=== PATIENT | male | born 1975 | race Caucasian/White ===

== ENCOUNTER 2021-07-14 14:34 | Inpatient (IN) | payer OTHER ==
[~2021-07-14] VITALS: Ht 188 cm; Wt 184.6 kg
[2021-07-14 14:47] VITALS: BP 167/88
[2021-07-14 15:14] LABS: BE 2.6 mmol/L (-2 to +3); PCO2 35.6 mmHg (35.0-45.0); PO2 69.4 mmHg (75.0-100.0); pH 7.478 (7.340-7.450)
[2021-07-14 15:31] LABS: INFLUENZA A ANTIGEN Negative (Negative); INFLUENZA B ANTIGEN Negative (Negative)
[2021-07-14 16:30] LABS: ABSOLUTE LYMPHOCYTES 0.6 thou/uL (0.8-5.3); ABSOLUTE MONOCYTES 0.5 thou/uL (0.0-1.2); ABSOLUTE NEUTROPHILS 5.5 thou/uL (1.6-8.1); BASOPHILS 0.3 %; EOSINOPHILS 0.2 %; HEMATOCRIT 41.2 % (42.0-52.0); LYMPHOCYTES 9.2 %; MCH 28.1 pg (26.0-34.0); MCV 82.5 fL (80.0-100.0); MPV 7.4 fl. (7.2-11.1); NUCLEATED RBCS 0 /100WBC; PLATELET COUNT* 214 thou/uL (150-400); POLYS 83.3 %; RBC 4.99 mil/uL (4.50-6.00); RDW-CV 13.9 % (10.5-14.5); WBC 6.6 thou/uL (4.0-11.0)
[2021-07-14 16:38] LABS: CREATININE 1.6 mg/dL (0.6-1.3); POTASSIUM 3.5 mmol/L (3.5-5.1)
[2021-07-14 16:49] LABS: ALBUMIN 2.8 g/dL (3.4-5.0); TOTAL BILIRUBIN 0.8 mg/dL (<0.1-1.0); TOTAL PROTEIN 7.8 g/dL (6.4-8.2)
--- NOTE | 2021-07-14 17:13 | EKG ---
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
[2021-07-14 20:01] VITALS: BP 114/81
[2021-07-15] VITALS (7 sets, daily range): BP systolic 120–142; BP diastolic 72–91
[2021-07-16 00:50] VITALS: BP 120/67
[2021-07-16 04:43] VITALS: BP 122/73
[2021-07-16 08:45] VITALS: BP 133/81
[2021-07-16 10:49] LABS: HEMATOCRIT 39.7 % (42.0-52.0); HEMOGLOBIN 13.7 gm/dL (14.0-18.0); MCH 28.1 pg (26.0-34.0); MCHC 34.4 g/dL (28.0-37.0); MCV 81.5 fL (80.0-100.0); MPV 7.7 fl. (7.2-11.1); RBC 4.87 mil/uL (4.50-6.00); RDW-CV 14.2 % (10.5-14.5); WBC 12.1 thou/uL (4.0-11.0)
[2021-07-16 10:57] LABS: ALBUMIN 2.7 g/dL (3.4-5.0); CALCIUM 8.4 mg/dL (8.5-10.1); CREATININE 1.3 mg/dL (0.6-1.3); MAGNESIUM 2.9 mg/dL (1.8-2.4); POTASSIUM 3.5 mmol/L (3.5-5.1); TOTAL BILIRUBIN 0.6 mg/dL (<0.1-1.0); TOTAL PROTEIN 7.7 g/dL (6.4-8.2)
[2021-07-16 13:12] VITALS: BP 137/80
[2021-07-16 16:00] VITALS: BP 127/77
[2021-07-16 20:00] VITALS: BP 133/87
[2021-07-17] VITALS: BP 116/75
[2021-07-17 04:01] VITALS: BP 121/76
[2021-07-17 08:00] VITALS: BP 132/85
[2021-07-17 12:22] LABS: ABSOLUTE MONOCYTES 0.5 thou/uL (0.0-1.2); ABSOLUTE NEUTROPHILS 7.9 thou/uL (1.6-8.1); BASOPHILS 0.4 %; EOSINOPHILS 0.1 %; HEMATOCRIT 39.5 % (42.0-52.0); HEMOGLOBIN 13.2 gm/dL (14.0-18.0); LYMPHOCYTES 10.6 %; MCH 28.4 pg (26.0-34.0); MCHC 33.4 g/dL (28.0-37.0); MONOCYTES 5.2 %; MPV 7.7 fl. (7.2-11.1); NUCLEATED RBCS 0 /100WBC; PLATELET COUNT* 203 thou/uL (150-400); POLYS 83.7 %; RBC 4.65 mil/uL (4.50-6.00); RDW-CV 14.2 % (10.5-14.5); WBC 9.4 thou/uL (4.0-11.0)
[2021-07-17 12:30] VITALS: BP 141/79
[2021-07-17 12:37] LABS: ALBUMIN 2.6 g/dL (3.4-5.0); CALCIUM 8.2 mg/dL (8.5-10.1); CREATININE 1.2 mg/dL (0.6-1.3); MAGNESIUM 2.8 mg/dL (1.8-2.4); TOTAL BILIRUBIN 0.7 mg/dL (<0.1-1.0); TOTAL PROTEIN 7.3 g/dL (6.4-8.2)
[2021-07-17 20:00] VITALS: BP 128/89
[2021-07-18] VITALS (7 sets, daily range): BP systolic 116–147; BP diastolic 73–87
[2021-07-18 12:23] LABS: HEMATOCRIT 38.3 % (42.0-52.0); MCH 28.3 pg (26.0-34.0); MCHC 33.8 g/dL (28.0-37.0); MCV 83.6 fL (80.0-100.0); MPV 7.9 fl. (7.2-11.1); NUCLEATED RBCS 0 /100WBC; PLATELET COUNT* 169 thou/uL (150-400); RBC 4.58 mil/uL (4.50-6.00); RDW-CV 14.3 % (10.5-14.5)
[2021-07-18 12:56] LABS: ABSOLUTE LYMPHOCYTES 1.3 thou/uL (0.8-5.3); ABSOLUTE MONOCYTES 0.7 thou/uL (0.0-1.2)
[2021-07-18 12:57] LABS: PLATELET ESTIMATE ADEQUATE
[2021-07-18 13:30] LABS: ALBUMIN 2.5 g/dL (3.4-5.0); CALCIUM 7.7 mg/dL (8.5-10.1); CREATININE 1.1 mg/dL (0.6-1.3); MAGNESIUM 2.6 mg/dL (1.8-2.4); POTASSIUM 3.6 mmol/L (3.5-5.1); TOTAL BILIRUBIN 0.6 mg/dL (<0.1-1.0); TOTAL PROTEIN 6.8 g/dL (6.4-8.2)
[2021-07-19 02:02] VITALS: BP 125/69
[2021-07-19 06:11] VITALS: BP 125/84
[2021-07-19 08:00] VITALS: BP 135/60
[2021-07-19 12:07] VITALS: BP 138/76
[2021-07-19 19:45] VITALS: BP 121/67
[2021-07-20 02:28] VITALS: BP 120/78
[2021-07-20 06:31] VITALS: BP 118/75
[2021-07-20 08:09] VITALS: BP 130/79
[2021-07-20 11:48] LABS: pH 7.476 (7.340-7.450)
[2021-07-20 11:49] LABS: BE 2.5 mmol/L (-2 to +3); PCO2 35.8 mmHg (35.0-45.0); PO2 65.1 mmHg (75.0-100.0)
[2021-07-20 12:25] VITALS: BP 139/83
[2021-07-20 12:53] LABS: ABSOLUTE LYMPHOCYTES 0.7 thou/uL (0.8-5.3); ABSOLUTE MONOCYTES 0.6 thou/uL (0.0-1.2); ABSOLUTE NEUTROPHILS 12.2 thou/uL (1.6-8.1); BASOPHILS 0.2 %; EOSINOPHILS 0.1 %; HEMATOCRIT 38.3 % (42.0-52.0); HEMOGLOBIN 12.4 gm/dL (14.0-18.0); MCH 27.9 pg (26.0-34.0); MCHC 32.5 g/dL (28.0-37.0); MCV 85.9 fL (80.0-100.0); MONOCYTES 4.4 %; MPV 7.5 fl. (7.2-11.1); NUCLEATED RBCS 0 /100WBC; PLATELET COUNT* 197 thou/uL (150-400); POLYS 90.3 %; RBC 4.46 mil/uL (4.50-6.00); RDW-CV 14.2 % (10.5-14.5); WBC 13.5 thou/uL (4.0-11.0)
[2021-07-20 13:06] LABS: CREATININE 0.9 mg/dL (0.6-1.3); POTASSIUM 5.8 mmol/L (3.5-5.1); TOTAL BILIRUBIN 0.6 mg/dL (<0.1-1.0); TOTAL PROTEIN 6.8 g/dL (6.4-8.2)
[2021-07-20 14:29] LABS: APTT 30.4 Seconds (25.0-31.3); INR 1.2; PROTIME 12.4 Seconds (9.20-11.50)
[2021-07-20 15:17] LABS: ABSOLUTE LYMPHOCYTES 0.7 thou/uL (0.8-5.3); ABSOLUTE MONOCYTES 0.5 thou/uL (0.0-1.2); ABSOLUTE NEUTROPHILS 13.5 thou/uL (1.6-8.1); BASOPHILS 0.2 %; EOSINOPHILS 0.1 %; HEMOGLOBIN 13.2 gm/dL (14.0-18.0); LYMPHOCYTES 4.5 %; MCH 28.1 pg (26.0-34.0); MCHC 33.1 g/dL (28.0-37.0); MONOCYTES 3.7 %; MPV 7.4 fl. (7.2-11.1); NUCLEATED RBCS 0 /100WBC; PLATELET COUNT* 210 thou/uL (150-400); POLYS 91.5 %; RBC 4.71 mil/uL (4.50-6.00); RDW-CV 13.9 % (10.5-14.5); WBC 14.7 thou/uL (4.0-11.0)
[2021-07-20 15:34] LABS: ALBUMIN 2.3 g/dL (3.4-5.0); CALCIUM 8.2 mg/dL (8.5-10.1); MAGNESIUM 2.6 mg/dL (1.8-2.4); TOTAL BILIRUBIN 0.6 mg/dL (<0.1-1.0); TOTAL PROTEIN 7.4 g/dL (6.4-8.2)
[2021-07-20 15:35] LABS: POTASSIUM 4.3 mmol/L (3.5-5.1)
[2021-07-20 16:00] VITALS: BP 129/76
[2021-07-20 20:00] VITALS: BP 117/73
[2021-07-21 01:47] VITALS: BP 119/65
[2021-07-21 05:15] LABS: ABSOLUTE LYMPHOCYTES 0.8 thou/uL (0.8-5.3); ABSOLUTE MONOCYTES 0.6 thou/uL (0.0-1.2); ABSOLUTE NEUTROPHILS 13.7 thou/uL (1.6-8.1); BASOPHILS 0.1 %; EOSINOPHILS 0.1 %; HEMATOCRIT 38.4 % (42.0-52.0); LYMPHOCYTES 5.3 %; MCH 28.1 pg (26.0-34.0); MCHC 33.9 g/dL (28.0-37.0); MCV 82.9 fL (80.0-100.0); MONOCYTES 3.9 %; MPV 7.8 fl. (7.2-11.1); NUCLEATED RBCS 0 /100WBC; PLATELET COUNT* 209 thou/uL (150-400); POLYS 90.6 %; RBC 4.63 mil/uL (4.50-6.00); RDW-CV 14.1 % (10.5-14.5); WBC 15.2 thou/uL (4.0-11.0)
[2021-07-21 05:35] VITALS: BP 118/68
[2021-07-21 05:51] LABS: ALBUMIN 2.2 g/dL (3.4-5.0); CALCIUM 8.2 mg/dL (8.5-10.1); CREATININE 1.1 mg/dL (0.6-1.3); MAGNESIUM 2.5 mg/dL (1.8-2.4); PHOSPHORUS* 4.7 mg/dL (2.5-4.9); POTASSIUM 4.2 mmol/L (3.5-5.1); TOTAL BILIRUBIN 0.5 mg/dL (<0.1-1.0)
[2021-07-21 12:20] LABS: BE 3.2 mmol/L (-2 to +3); PCO2 38.8 mmHg (35.0-45.0); pH 7.461 (7.340-7.450)
[2021-07-21 12:23] LABS: PO2 56.4 mmHg (75.0-100.0)
--- NOTE | 2021-07-21 12:57 | 2DMMODE ---
[place] [address] 2 D/M-MODE ECHOCARDIOGRAM Name: MAIDA ERNANDEZ Room: [address] IN [facility]#: [id number] Admission: 07/14/21 Attend Phys: Aubrey Gonzalez Discharge: Date of : 77 Date of Service: 07/21/21 1257 Report #: [id number] THIS REPORT FOR: cc: FAM - No family physician/PCP BETY - No family physician/PCP Perry Brannon MD [facility] ~ APPROVED REPORT Study performed: 07/21/2021 10:19:46 EXAM: Comprehensive 2D, Doppler, and color-flow Echocardiogram Patient Location: In-Patient Room #: [facility] Status: routine BSA: 2.99 HR: 70 bpm BP: 118/68 mmHg Rhythm: NSR Other Information Study Quality: Technically Difficult Technically limited study due to patient could not tolerate apical views. Indications Dyspnea possible PE 2D Dimensions IVSd: 11.78 (7-11mm) LVOT Diam: 23.82 (18-24mm) LVDd: 55.46 mm PWd: 10.37 (7-11mm) Ascending Ao: 32.58 (22-36mm) LVDs: 35.29 (25-40mm) Aortic Root: 36.96 mm Mitral Valve E/A Ratio: 1.40 MV Decel. Time: 263.14 ms MV E Max Peter.: 0.75 m/s MV PHT: 76.31 ms MVA (PHT): 2.88 cm2 Pulmonary Valve PV Peak Peter.: 1.58 m/s PV Peak Gr.: 10.02 [place] [address] 2 D/M-MODE ECHOCARDIOGRAM Name: MAIDA ERNANDEZ Room: [address] IN [facility]#: [id number] Admission: 07/14/21 Attend Phys: Aubrey Gonzalez Discharge: Date of : 77 Date of Service: 07/21/21 1257 Report #: [id number] Left Ventricle The left ventricle is normal size. There is normal LV segmental wall motion. There is normal left ventricular wall thickness. Left ventricular systolic function is normal. The left ventricular ejection fraction is within the normal range. LVEF is 55%. The left ventricular diastolic function is normal. Right Ventricle The right ventricle is normal size. The right ventricular systolic function is normal. Atria The left atrium size is normal. The right atrium size is normal. Aortic Valve The aortic valve is normal in structure. No aortic regurgitation is present. There is no aortic valvular stenosis. Mitral Valve The mitral valve is normal in structure. There is no mitral valve regurgitation noted. No evidence of mitral valve stenosis. Tricuspid Valve The tricuspid valve is normal in structure. Unable to assess PA pressure. There is no tricuspid valve regurgitation noted. Pulmonic Valve The pulmonary valve is normal in structure. Trace pulmonic regurgitation. Great Vessels The aortic root is normal in size. IVC is normal in size and collapses >50% with inspiration. Pericardium There is no pericardial effusion. <Conclusion> The left ventricle is normal size. There is normal left ventricular wall thickness. Left ventricular systolic function is normal. The left ventricular ejection fraction is within the normal range. LVEF is 55%. [place] [address] 2 D/M-MODE ECHOCARDIOGRAM Name: AWAISMADIA Room: [address] IN [facility]#: [id number] Admission: 07/14/21 Attend Phys: Aubrey Gonzalez Discharge: Date of : 77 Date of Service: 07/21/21 1257 Report #: [id number] The left ventricular diastolic function is normal. The right ventricle is normal size. The left atrium size is normal. The aortic valve is normal in structure. The mitral valve is normal in structure. The tricuspid valve is normal in structure. IVC is normal in size and collapses >50% with inspiration. There is no pericardial effusion. There is normal LV segmental wall motion. <ELECTRONICALLY SIGNED> By: Perry Brannon MD, [facility] 07/21/21 1257 1257 1257 Perry Brannon MD, FACC /INF
[2021-07-21 13:03] VITALS: BP 122/82
--- NOTE | 2021-07-21 13:30 | CON ---
[address] [address] CONSULTATION Name: MAIDA ERNANDEZ Room: [address] IN .R.#: [id number] Admission: 07/14/21 Attend Phys: Karen Hernandez Discharge: Date of : 77 Report #: [id number] THIS REPORT FOR: cc: FAM - No family physician/PCP FAM - No family physician/PCP Franc Cabezas MD ~ DATE OF CONSULTATION: 07/20/[address] Rico. INDICATION FOR CONSULTATION: Acute hypoxemic respiratory failure secondary to COVID-19. HISTORY OF PRESENT ILLNESS: A 46-year-old gentleman, he has morbid obesity, body mass index 55, likely has underlying obstructive sleep apnea, not previously diagnosed, also does have an extensive history of smoking in the past and may have previously undiagnosed COPD. He is now admitted with acute hypoxemic respiratory failure secondary to COVID-19, appears anxious, is on a BiPAP with 100% FiO2, remains fully awake; however, is unable to take BiPAP off and desaturates and placed on a heated high-flow nasal cannula, does have swelling of lower extremities. The patient is on a BiPAP and therefore was able to provide only limited history and review of systems. Review of systems and history are negative except as mentioned above. He has had recent cellulitis of lower extremities. PAST MEDICAL HISTORY: Morbid obesity, body mass index 55. SOCIAL HISTORY: Previous history of smoking, unable to quantify. ALLERGIES: No known drug allergies. FAMILY HISTORY: Unremarkable. VACCINATION HISTORY: Not known to me as to whether he has had the COVID-19 vaccine. PHYSICAL EXAMINATION: GENERAL: He is alert, awake and oriented, but appears to be anxious, has significant work of breathing. VITAL SIGNS: He is on BiPAP 100% FiO2, set at 16/12. He is saturating 94% with this. The rest of his vital signs are in [facility] reviewed. HEENT: Head is normocephalic and atraumatic. NECK: Does not show raised JVP. CHEST: Breath sounds are bilaterally equal and decreased, [place] [address] CONSULTATION Name: MAIDA ERNANDEZ Room: [address] IN [facility]#: [id number] Admission: 07/14/21 Attend Phys: Karen Hernandez Discharge: Date of : 77 Report #: [id number] to tachypnea. HEART: Regular. No murmur. ABDOMEN: Soft and nontender. EXTREMITIES: Lower extremities, 1+ edema, no calf tenderness. LABORATORY DATA: The patient's chest x-rays as well as labs are in [facility] and these are reviewed. The last set of chemistries may not be accurate. ASSESSMENT AND PLAN: 1. Acute hypoxemic respiratory failure secondary to COVID-19. For now, keep him on BiPAP or making other changes to his management. Therefore, I did not change the BiPAP settings at this time, but I do intend to in the future consider switching it over to AVAPS. He appears to be anxious. I would favor giving him Precedex. Unfortunately, I do not have a room available in the ICU, which is negative pressure. Therefore, we would give him Ativan and follow response to this. In case he fails to respond, then I would still be inclined to try a Precedex drip before considering intubation. 2. COVID-19. Agree with dexamethasone at current dose. He received 5 doses of remdesivir, I ordered 5 more. He has received Actemra, which I also agree with. 3. Deep venous thrombosis/possible acute pulmonary emboli. Agree with IV heparin drip as ordered by Dr. Rico. Marked elevation in D-dimer is noted. 4. Pulmonary infiltrates. For now, we will recommend broadly covering him. Linezolid and azithromycin are added and cefepime dose increased. Procalcitonin level ordered. We will check nasal MRSA swab and if possible, sputum culture. 5. Fluid overload. He appears to be total body fluid overloaded. I ordered 40 of Lasix. He has had recent labs performed, which show marked elevation in glucose as well as high potassium level and low sodium level. The patient had a Clinimix running at that time in the other port. It could be secondary to admixture from it. We will repeat labs now and see where we stand. I only ordered 40 of Lasix for now. We will be inclined to give him more Lasix with or without albumin later. 6. Hyperglycemia. Defer insulin management to the Primary Service. As above, the last blood glucose of 399 may not be accurate. Potassium level may also not be accurate and therefore rechecking. 7. Clostridium difficile prophylaxis. If able to, then we will give him probiotic. 8. Gastrointestinal prophylaxis. Protonix is chosen over Pepcid as he is also on linezolid and on cefepime and on heparin, all of which will drop platelets and so would Pepcid. The patient is critically ill at this time. [address] [address] CONSULTATION Name: MAIDA ERNANDEZ Room: [address]#: [id number] Admission: 07/14/21 Attend Phys: Karen Hernandez Discharge: Date of : 77 Report #: [id number] Total time spent providing critical care to this patient today is 41 minutes. <ELECTRONICALLY SIGNED> By: Franc Cabezas MD 07/21/21 1330 1409 1549Admitriy Cabezas MD /nt
[2021-07-21 16:00] VITALS: BP 126/73
[2021-07-21 23:15] VITALS: BP 129/83
[2021-07-21 23:56] VITALS: BP 114/78
[2021-07-22 04:03] VITALS: BP 130/83
[2021-07-22 05:50] LABS: ABSOLUTE LYMPHOCYTES 0.6 thou/uL (0.8-5.3); ABSOLUTE MONOCYTES 0.6 thou/uL (0.0-1.2); ABSOLUTE NEUTROPHILS 11.7 thou/uL (1.6-8.1); BASOPHILS 0.1 %; EOSINOPHILS 0.2 %; HEMATOCRIT 40.6 % (42.0-52.0); HEMOGLOBIN 13.5 gm/dL (14.0-18.0); LYMPHOCYTES 4.8 %; MCH 28.2 pg (26.0-34.0); MCHC 33.3 g/dL (28.0-37.0); MCV 84.9 fL (80.0-100.0); MONOCYTES 4.9 %; MPV 7.5 fl. (7.2-11.1); NUCLEATED RBCS 0 /100WBC; PLATELET COUNT* 223 thou/uL (150-400); RBC 4.78 mil/uL (4.50-6.00); RDW-CV 13.9 % (10.5-14.5)
[2021-07-22 06:01] LABS: ALBUMIN 2.6 g/dL (3.4-5.0); CREATININE 1.1 mg/dL (0.6-1.3); MAGNESIUM 2.4 mg/dL (1.8-2.4); POTASSIUM 4.3 mmol/L (3.5-5.1); TOTAL BILIRUBIN 0.7 mg/dL (<0.1-1.0); TOTAL PROTEIN 7.1 g/dL (6.4-8.2)
[2021-07-22 08:30] VITALS: BP 133/83
[2021-07-22 12:00] VITALS: BP 120/66
[2021-07-22 16:00] VITALS: BP 122/78
[2021-07-22 20:00] VITALS: BP 131/63
[2021-07-23] VITALS (28 sets, daily range): BP systolic 72–196; BP diastolic 43–142
[2021-07-23 07:23] LABS: HEMATOCRIT 43.7 % (42.0-52.0); HEMOGLOBIN 14.4 gm/dL (14.0-18.0); MCH 27.8 pg (26.0-34.0); MCHC 32.9 g/dL (28.0-37.0); MCV 84.5 fL (80.0-100.0); MPV 7.8 fl. (7.2-11.1); NUCLEATED RBCS 0 /100WBC; PLATELET COUNT* 223 thou/uL (150-400); RBC 5.17 mil/uL (4.50-6.00); WBC 17.7 thou/uL (4.0-11.0)
[2021-07-23 07:32] LABS: ALBUMIN 2.9 g/dL (3.4-5.0); CALCIUM 8.2 mg/dL (8.5-10.1); CREATININE 1.1 mg/dL (0.6-1.3); MAGNESIUM 2.4 mg/dL (1.8-2.4); POTASSIUM 4.4 mmol/L (3.5-5.1); TOTAL BILIRUBIN 0.8 mg/dL (<0.1-1.0); TOTAL PROTEIN 7.5 g/dL (6.4-8.2)
[2021-07-23 08:19] LABS: ABSOLUTE LYMPHOCYTES 1.1 thou/uL (0.8-5.3); ABSOLUTE MONOCYTES 0.9 thou/uL (0.0-1.2); ABSOLUTE NEUTROPHILS 15.8 thou/uL (1.6-8.1); PLATELET ESTIMATE ADEQUATE
[2021-07-23 09:40] LABS: BE 0.3 mmol/L (-2 to +3); PO2 62.4 mmHg (75.0-100.0); pH 7.371 (7.340-7.450)
[2021-07-23 17:44] LABS: BE 0.6 mmol/L (-2 to +3); PO2 66.9 mmHg (75.0-100.0); pH 7.388 (7.340-7.450)
[2021-07-24] VITALS (22 sets, daily range): BP systolic 90–129; BP diastolic 48–67
[2021-07-24 06:09] LABS: ABSOLUTE BASOPHILS 0.1 thou/uL (0.0-0.2); ABSOLUTE EOSINOPHILS 0.1 thou/uL (0.0-0.7); ABSOLUTE LYMPHOCYTES 0.9 thou/uL (0.8-5.3); ABSOLUTE MONOCYTES 1.2 thou/uL (0.0-1.2); ABSOLUTE NEUTROPHILS 24.3 thou/uL (1.6-8.1); BASOPHILS 0.2 %; EOSINOPHILS 0.2 %; HEMATOCRIT 43.1 % (42.0-52.0); HEMOGLOBIN 14.2 gm/dL (14.0-18.0); LYMPHOCYTES 3.5 %; MCH 27.9 pg (26.0-34.0); MCHC 32.9 g/dL (28.0-37.0); MCV 84.8 fL (80.0-100.0); MONOCYTES 4.4 %; MPV 8.3 fl. (7.2-11.1); NUCLEATED RBCS 0 /100WBC; PLATELET COUNT* 209 thou/uL (150-400); POLYS 91.7 %; RBC 5.08 mil/uL (4.50-6.00); WBC 26.5 thou/uL (4.0-11.0)
[2021-07-24 06:11] LABS: ALBUMIN 3.1 g/dL (3.4-5.0); CALCIUM 8.2 mg/dL (8.5-10.1); CREATININE 1.2 mg/dL (0.6-1.3); MAGNESIUM 2.7 mg/dL (1.8-2.4); TOTAL BILIRUBIN 0.9 mg/dL (<0.1-1.0); TOTAL PROTEIN 6.9 g/dL (6.4-8.2)
[2021-07-24 06:24] LABS: PHOSPHORUS* 4.3 mg/dL (2.5-4.9)
[2021-07-24 06:30] LABS: POTASSIUM 5.6 mmol/L (3.5-5.1)
[2021-07-24 10:35] LABS: BE -3.9 mmol/L (-2 to +3); PO2 80.3 mmHg (75.0-100.0)
[2021-07-24 10:41] LABS: pH 7.268 (7.340-7.450)
[2021-07-24 10:42] LABS: PCO2 52.9 mmHg (35.0-45.0)
[2021-07-24 18:15] LABS: BE -1.3 mmol/L (-2 to +3); PO2 81.8 mmHg (75.0-100.0)
[2021-07-24 18:23] LABS: PCO2 66.4 mmHg (35.0-45.0); pH 7.242 (7.340-7.450)
[2021-07-25] VITALS (19 sets, daily range): BP systolic -6–134; BP diastolic -9–68
[2021-07-25 06:52] LABS: ABSOLUTE LYMPHOCYTES 0.9 thou/uL (0.8-5.3); ABSOLUTE MONOCYTES 1.6 thou/uL (0.0-1.2); ABSOLUTE NEUTROPHILS 28.7 thou/uL (1.6-8.1); BASOPHILS 0.1 %; EOSINOPHILS 0.1 %; HEMATOCRIT 43.4 % (42.0-52.0); HEMOGLOBIN 14.1 gm/dL (14.0-18.0); LYMPHOCYTES 2.9 %; MCH 27.7 pg (26.0-34.0); MCHC 32.4 g/dL (28.0-37.0); MCV 85.4 fL (80.0-100.0); MONOCYTES 5.2 %; MPV 7.8 fl. (7.2-11.1); NUCLEATED RBCS 0 /100WBC; PLATELET COUNT* 200 thou/uL (150-400); POLYS 91.7 %; RBC 5.08 mil/uL (4.50-6.00); WBC 31.3 thou/uL (4.0-11.0)
[2021-07-25 07:12] LABS: INR 1.1; PROTIME 11.3 Seconds (9.20-11.50)
[2021-07-25 07:14] LABS: APTT 101.9 Seconds (25.0-31.3)
[2021-07-25 07:17] LABS: ALBUMIN 3.1 g/dL (3.4-5.0); CALCIUM 7.9 mg/dL (8.5-10.1); CREATININE 1.5 mg/dL (0.6-1.3); MAGNESIUM 2.7 mg/dL (1.8-2.4); TOTAL BILIRUBIN 0.9 mg/dL (<0.1-1.0); TOTAL PROTEIN 6.7 g/dL (6.4-8.2)
[2021-07-25 07:39] LABS: CREATININE 1.5 mg/dL (0.6-1.3); PHOSPHORUS* 5.8 mg/dL (2.5-4.9); POTASSIUM 5.9 mmol/L (3.5-5.1)
[2021-07-25 10:15] LABS: BE -4.5 mmol/L (-2 to +3); PO2 100.3 mmHg (75.0-100.0)
[2021-07-25 10:17] LABS: pH 7.247 (7.340-7.450)
[2021-07-25 10:18] LABS: PCO2 55.3 mmHg (35.0-45.0)
[2021-07-25 13:33] LABS: HEMATOCRIT 45.2 % (42.0-52.0); HEMOGLOBIN 14.8 gm/dL (14.0-18.0); MCH 28.1 pg (26.0-34.0); MCHC 32.6 g/dL (28.0-37.0); MCV 86.2 fL (80.0-100.0); MPV 8.1 fl. (7.2-11.1); RBC 5.25 mil/uL (4.50-6.00)
[2021-07-25 13:39] LABS: WBC 55.1 thou/uL (4.0-11.0)
[2021-07-25 20:09] LABS: BE -7.9 mmol/L (-2 to +3); PO2 75.2 mmHg (75.0-100.0)
[2021-07-25 20:11] LABS: PCO2 93.5 mmHg (35.0-45.0)
[2021-07-25 22:15] LABS: MAGNESIUM 3.2 mg/dL (1.8-2.4)
[2021-07-25 22:16] LABS: CREATININE 3.2 mg/dL (0.6-1.3)
[2021-07-25 22:17] LABS: POTASSIUM 6.4 mmol/L (3.5-5.1)
[2021-07-26] VITALS (79 sets, daily range): BP systolic 106–149; BP diastolic 61–93
[2021-07-26 03:23] LABS: HEMATOCRIT 40.6 % (42.0-52.0); HEMOGLOBIN 13.3 gm/dL (14.0-18.0); MCH 27.8 pg (26.0-34.0); MCHC 32.7 g/dL (28.0-37.0); MCV 84.8 fL (80.0-100.0); MPV 8.2 fl. (7.2-11.1); RBC 4.79 mil/uL (4.50-6.00); RDW-CV 13.8 % (10.5-14.5)
[2021-07-26 03:28] LABS: WBC 41.5 thou/uL (4.0-11.0)
[2021-07-26 03:30] LABS: CALCIUM 7.6 mg/dL (8.5-10.1); CREATININE 3.2 mg/dL (0.6-1.3)
[2021-07-26 03:32] LABS: INR 1.1; PROTIME 11.1 Seconds (9.20-11.50)
[2021-07-26 03:49] LABS: POTASSIUM 6.6 mmol/L (3.5-5.1)
[2021-07-26 04:22] LABS: PCO2 66.5 mmHg (35.0-45.0); pH 7.186 (7.340-7.450)
--- NOTE | 2021-07-26 10:55 | EKG ---
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 : 1975 Requested By: Aubrey Gonzalez Order Number: [id number] Krupa MD: Ben Curtis Measurements Intervals [place] Rate: 157 P: 0 NC: 69 QRS: 90 QRSD: 96 T: -76 QT: 326 QTc: 527 Interpretive Statements Sinus tachycardia Borderline right axis deviation Borderline T abnormalities, inferior leads Prolonged QT interval late transition Compared to ECG 07/14/2021 15:00:48 rate has increased Prolonged QT interval now present Electronically Signed On 07-26-2021 10:54:50 FOUNDATION RELATIONS MANAGER by Ben Curtis [email or web address] <ELECTRONICALLY SIGNED> By: Ben Curtis MD, [facility] 07/26/21 1054 1759 1759 Ben Curtis MD, [facility] /EPI
--- NOTE | 2021-07-26 10:58 | EKG ---
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 07/26/21 1058 06 06 Ben Curtis MD, [facility] /EPI
[2021-07-26 14:47] LABS: ABSOLUTE EOSINOPHILS 0.1 thou/uL (0.0-0.7); ABSOLUTE LYMPHOCYTES 1.4 thou/uL (0.8-5.3); ABSOLUTE MONOCYTES 2.5 thou/uL (0.0-1.2); ABSOLUTE NEUTROPHILS 26.2 thou/uL (1.6-8.1); BASOPHILS 0.1 %; EOSINOPHILS 0.2 %; HEMATOCRIT 37.2 % (42.0-52.0); HEMOGLOBIN 12.3 gm/dL (14.0-18.0); LYMPHOCYTES 4.7 %; MCH 28.1 pg (26.0-34.0); MCHC 33.1 g/dL (28.0-37.0); MONOCYTES 8.2 %; MPV 8.1 fl. (7.2-11.1); NUCLEATED RBCS 0 /100WBC; PLATELET COUNT* 131 thou/uL (150-400); POLYS 86.8 %; RBC 4.38 mil/uL (4.50-6.00); WBC 30.2 thou/uL (4.0-11.0)
--- NOTE | 2021-07-26 14:52 | CON ---
[address] [address] CONSULTATION Name: MAIDA ERNANDEZ Room: [address] IN M.R.#: [id number] Admission: 07/14/21 Attend Phys: Karen Hernandez Discharge: Date of : 77 Report #: [id number] THIS REPORT FOR: cc: FAM - No family physician/PCP FAM - No family physician/PCP Ben Curtis MD [facility] ~ DATE OF CONSULTATION: 07/26/2021 CARDIOLOGY CONSULTATION HISTORY OF PRESENT ILLNESS: The patient is a 46-year-old white male who I was asked to see in the hospital today after he was noted to be in atrial fibrillation. The patient presented to [place] a week ago with shortness of breath. He had a history of cellulitis of his leg. He came to [place] and had to be intubated. When he presented, he was in sinus tachycardia. He remained in sinus rhythm until yesterday. He appeared to go into an atrial tachycardia at 160 beats per minute. Cardiology consultation was requested. PAST MEDICAL HISTORY: Unremarkable. PAST SURGICAL HISTORY: There is no surgical history. MEDICATIONS: He is on no medications. ALLERGIES: He had no known drug allergies. SOCIAL HISTORY: He previously smoked. REVIEW OF SYSTEMS: There is no history of stroke, liver disease, kidney disease, cancer, psychiatric illness. PHYSICAL EXAMINATION: GENERAL: Revealed a large, obese male, lying in bed. He was on the ventilator. He was on IV pressors and insulin. VITAL SIGNS: He had a blood pressure of 120/60, pulse is 100. He was afebrile. HEENT: He was anicteric. Conjunctivae pink. Mucous membranes moist. NECK: Neck veins do not appear distended. CHEST: Clear to auscultation. CARDIAC: Regular rhythm. ABDOMEN: Obese. EXTREMITIES: Had no pitting edema. SKIN: Cool and dry. DIAGNOSTIC DATA: ECG last night showed what appeared to represent atrial flutter with controlled ventricular response rate, [place] [address] CONSULTATION Name: MAIDA ERNANDEZ Room: [address] IN [facility]#: [id number] Admission: 07/14/21 Attend Phys: Karen Hernandez Discharge: Date of : 77 Report #: [id number] changes. His workup so far, he actually had an echocardiogram done last week that showed normal ejection fraction, no significant valvular abnormality. His x-rays, he had a portable chest x-ray performed last week that showed bilateral infiltrates. He had venous duplex scan of the legs performed last week that showed deep vein thrombosis of his right femoral vein. LABORATORY WORK: BUN 80, creatinine 3.2, potassium is 6.6. His high sensitivity troponin was 9. BNP 80. His hematocrit 40.6. His COVID antigen test was positive. IMPRESSION AND RECOMMENDATIONS: 1. Respiratory failure. The patient on ventilator. 2. COVID-19 pneumonia. 3. Renal failure. 4. Gram-negative pneumonia. 5. Obesity. 6. Hyperkalemia. 7. Possible diabetes. 8. Atrial flutter. Recommend digoxin to slow the ventricular response rate. 9. Deep vein thrombosis. The patient is currently on a heparin drip. <ELECTRONICALLY SIGNED> By: Ben Curtis MD, [facility] 07/26/21 1452 0754 [id number] Curtis MD, FAC /nt
[2021-07-26 15:39] LABS: URINE BILIRUBIN NEGATIVE (Negative); URINE BLOOD 3+ (Negative); URINE COLOR YELLOW; URINE GLUCOSE-RANDOM NEGATIVE (Negative); URINE KETONES NEGATIVE (Negative); URINE LEUKOCYTES-REFLEX NEGATIVE (Negative); URINE NITRITE-REFLEX NEGATIVE (Negative); URINE PROTEIN TRACE (Negative); URINE UROBILINOGEN 0.2 E.U./dl (0.2-1.0)
[2021-07-26 15:41] LABS: URINE CLARITY HAZY
[2021-07-26 15:53] LABS: SQUAMOUS 4-10 Moderate /LPF (0-3)
[2021-07-26 15:54] LABS: BACTERIA-REFLEX >30 Many /HPF (None Seen); CASTS None Seen /LPF (None Seen); CRYSTALS None Seen /LPF (None Seen); URINE RBC >20 Many /HPF (0-2); URINE WBC-REFLEX 6-15 Few /HPF (0-5)
[2021-07-26 18:50] LABS: BE 2.2 mmol/L (-2 to +3); PCO2 45.5 mmHg (35.0-45.0); PO2 79.7 mmHg (75.0-100.0); pH 7.399 (7.340-7.450)
[2021-07-27] VITALS (38 sets, daily range): BP systolic 60–129; BP diastolic 33–71
[2021-07-27 04:10] LABS: HEMATOCRIT 36.1 % (42.0-52.0); HEMOGLOBIN 11.9 gm/dL (14.0-18.0); MCH 27.9 pg (26.0-34.0); MCV 84.5 fL (80.0-100.0); MPV 8.3 fl. (7.2-11.1); NUCLEATED RBCS 0 /100WBC; PLATELET COUNT* 126 thou/uL (150-400); RBC 4.27 mil/uL (4.50-6.00); RDW-CV 13.9 % (10.5-14.5); WBC 32.2 thou/uL (4.0-11.0)
[2021-07-27 04:32] LABS: ALBUMIN 2.6 g/dL (3.4-5.0); CALCIUM 7.2 mg/dL (8.5-10.1); CREATININE 3.5 mg/dL (0.6-1.3); TOTAL BILIRUBIN 0.9 mg/dL (<0.1-1.0)
[2021-07-27 04:36] LABS: POTASSIUM 6.2 mmol/L (3.5-5.1)
[2021-07-27 04:40] LABS: CALCIUM 7.1 mg/dL (8.5-10.1); CREATININE 3.6 mg/dL (0.6-1.3); MAGNESIUM 2.8 mg/dL (1.8-2.4); PHOSPHORUS* 6.3 mg/dL (2.5-4.9)
[2021-07-27 05:29] LABS: POTASSIUM 6.3 mmol/L (3.5-5.1)
[2021-07-27 07:28] LABS: ABSOLUTE LYMPHOCYTES 0.6 thou/uL (0.8-5.3); ABSOLUTE MONOCYTES 1.9 thou/uL (0.0-1.2); ABSOLUTE NEUTROPHILS 29.6 thou/uL (1.6-8.1); MYELOCYTES 4 %; PLATELET ESTIMATE DECREASED
[2021-07-27 09:39] LABS: BE -1.2 mmol/L (-2 to +3); PO2 79.4 mmHg (75.0-100.0)
[2021-07-27 09:42] LABS: pH 7.255 (7.340-7.450)
[2021-07-27 09:43] LABS: PCO2 62.5 mmHg (35.0-45.0)
[2021-07-27 13:01] LABS: BE -16.4 mmol/L (-2 to +3)
[2021-07-27 13:11] LABS: PCO2 82.5 mmHg (35.0-45.0); PO2 51.2 mmHg (75.0-100.0)
[2021-07-27 13:12] LABS: pH 6.939 (7.340-7.450)
[2021-07-27 15:07] LABS: HEPATITIS B SURFACE AG Negative (Negative)
--- NOTE | 2021-07-28 11:02 | CON ---
[address] [address] CONSULTATION Name: MAIDA ERNANDEZ Room: [address] IN .R.#: [id number] Admission: 07/14/21 Attend Phys: Karen Hernandez Discharge: 07/27/21 Date of : 77 Report #: [id number] THIS REPORT FOR: cc: BETY - No family physician/PCP FAM - No family physician/PCP Gabo Davis MD ~ DATE OF CONSULTATION: 07/26/2021 REQUESTING PHYSICIAN: Aubrey Gonzalez DO REASON FOR CONSULTATION: Acute kidney injury. HISTORY OF PRESENT ILLNESS: The patient is a 46-year-old man with medical history significant for obesity, who was admitted to the hospital on 07/14 with complaints of not feeling well. He was diagnosed with COVID and currently is in intensive care unit. His creatinine on admission was 1.6 and improved to 0.9 on 07/20, but now is back up to 3.2. Creatinine yesterday was 3.2, today is also 3.2. His potassium is 6.6 and urine output is dropping down to 325 mL last 8 hours. He was treated for high potassium, but unfortunately did not improve, it was 6.4 last night. It is up to 6.6. SOCIAL HISTORY: Positive for tobaccoism. FAMILY HISTORY: Positive for hypertension and obesity. REVIEW OF SYSTEMS: Unobtainable due to being intubated. PHYSICAL EXAMINATION: GENERAL: He is in intensive care unit, intubated. VITAL SIGNS: Reviewed. He is on pressors. NECK: Fatty. LUNGS: Decreased air movement. ABDOMEN: Obese, soft. LABORATORY DATA: Serum sodium 135, potassium 6.6, chloride 96, carbon dioxide 30, BUN 80, creatinine 3.2. ASSESSMENT: 1. Acute kidney injury due to COVID infection. 2. COVID pneumonia with respiratory failure and renal failure. 3. Obesity. 4. Hyperkalemia due [place] [address] CONSULTATION Name: AWAISMAIDA W Room: [address]#: [id number] Admission: 07/14/21 Attend Phys: Karen Hernandez Discharge: 07/27/21 Date of : 77 Report #: [id number] PLAN: We will need to dialyze him emergently due to persistent hyperkalemia. He is a complicated critical patient. 45 minutes spent on this consultation. Discussed case with Dr. Cabezas, Dr. Le and ICU nurse. <ELECTRONICALLY SIGNED> By: Gabo Davis MD 07/28/21 1102 1044 1059Alexandr Doris Davis MD /nt
== END 2021-07-27 13:12 | DRG 871 ==
LOC: M.ERS 14:34 → M.TBA-ER 15:45 → M.ORTHSURG 07-15 19:19 → M.ICU 07-23 07:00
PROVIDERS: Family Medicine; Internal Medicine; Internal Medicine Critical Care Medicine; Internal Medicine Nephrology; Physician Assistant; ADMIT Internal Medicine; ATTEND Internal Medicine
DX: A41.9 Sepsis, unspecified organism (principal); U07.1 COVID-19; J12.82 Pneumonia due to coronavirus disease 2019; J15.6 Pneumonia due to other Gram-negative bacteria; J96.01 Acute respiratory failure with hypoxia; I48.92 Unspecified atrial flutter; N17.9 Acute kidney failure, unspecified; J44.0 Chronic obstructive pulmonary disease with (acute) lower respiratory infection; J44.1 Chronic obstructive pulmonary disease with (acute) exacerbation; E87.1 Hypo-osmolality and hyponatremia; E87.2 Acidosis; Z68.43 Body mass index [BMI] 50.0-59.9, adult; I82.411 Acute embolism and thrombosis of right femoral vein; I82.431 Acute embolism and thrombosis of right popliteal vein; R73.9 Hyperglycemia, unspecified; E87.5 Hyperkalemia; E66.9 Obesity, unspecified; Z87.891 Personal history of nicotine dependence